=== PATIENT | female | born 1975 | race American Indian/Alaskan Native ===

== ENCOUNTER 2017-02-02 09:19 | Inpatient (IN) | payer OTHER ==
[2017-02-02 10:40] LABS: Basophils % (Auto) 0.3 % (0.0-1.8); Eosinophils % (Auto) 0.4 % (0.0-4.3); Mean Corpuscular HGB Conc 28 % (30-34); Platelet Count 113 K/mm3 (140-440); Red Blood Count 3.93 M/mm3 (3.65-5.03); White Blood Count 11.9 K/mm3 (4.5-11.0)
[2017-02-02 10:45] LABS: Hematocrit 20.5 % (30.3-42.9); Hemoglobin 5.7 gm/dl (10.1-14.3); Mean Corpuscular Hemoglobin 15 pg (28-32); Mean Corpuscular Volume 52 fl (79-97); Red Cell Distribution Width 22.8 % (13.2-15.2)
[2017-02-02 10:47] LABS: Alanine Aminotransferase 11 units/L (7-56); Albumin 3.9 g/dL (3.9-5); Albumin/Globulin Ratio 0.9 %; Alkaline Phosphatase 92 units/L (35-129); Anion Gap 15 mmol/L; Bilirubin,Total 0.3 mg/dL (0.1-1.2); Blood Urea Nitrogen 8 mg/dL (7-17); Calcium 9.1 mg/dL (8.4-10.2); Carbon Dioxide 25 mmol/L (22-30); Glucose 94 mg/dL (65-100); Lipase 13 units/L (13-60); Sodium 137 mmol/L (137-145); Total Protein 8.3 g/dL (6.3-8.2)
--- NOTE | 2017-02-02 10:52 | Emergency Department Report ---
ED General Adult HPI - General Chief complaint: Abdominal Pain Stated complaint: SIDE/BACK PAIN Time Seen by Provider: 02/02/17 10:50 Source: patient Mode of arrival: Ambulatory Limitations: No Limitations - History of Present Illness Initial comments: The patient complains of right flank pain that somewhat radiates anteriorly. She has had some difficulty in urinating but no bell burning or pain. She does not complain of nausea or vomiting. She states that she has had chronically heavy periods and they have continued to be so. She has not been seen by a brand development manager in quite some time. She does report dyspnea on exertion and generalized weakness. She's had no recent fever or chills. -: Gradual, days(s) Location: right (flank) Radiation: other (slightly anterior) Quality: aching Consistency: intermittent Improves with: none Worsens with: none Associated Symptoms: shortness of breath, weakness - Related Data Home Medications Medication Instructions Recorded Confirmed Last Taken No Known Home Medications [No 02/02/17 02/02/17 Unknown Reported Home Medications] Allergies Allergy/AdvReac Type Severity Reaction Status Date / Time No Known Allergies Allergy Unverified 04/07/15 17:54 ED Review of Systems ROS: Stated complaint: SIDE/BACK PAIN Other details as noted in HPI Constitutional: denies: chills, fever Eyes: denies: eye pain, eye discharge, vision change ENT: denies: ear pain, throat pain Respiratory: denies: cough, shortness of breath, wheezing Cardiovascular: denies: chest pain, palpitations Endocrine: no symptoms reported Gastrointestinal: denies: abdominal pain, nausea, diarrhea Genitourinary: as per HPI. denies: urgency, discharge Musculoskeletal: back pain. denies: joint swelling, arthralgia Skin: denies: rash, lesions Neurological: denies: headache, weakness, paresthesias Psychiatric: denies: anxiety, depression Hematological/Lymphatic: denies: easy bleeding, easy bruising ED Past Medical Hx - Past Medical History Previous Medical History?: No - Surgical History Past Surgical History?: No - Social History Smoking Status: Never Smoker Substance Use Type: Alcohol - Medications Home Medications: Home Medications Medication Instructions Recorded Confirmed Last Taken Type No Known Home Medications [No 02/02/17 02/02/17 Unknown History Reported Home Medications] ED Physical Exam - General Limitations: No Limitations General appearance: alert, in no apparent distress - Head Head exam: Present: atraumatic, normocephalic - Eye Eye exam: Present: normal appearance, other (conjunctival pallor) - ENT ENT exam: Present: mucous membranes moist - Neck Neck exam: Present: normal inspection. Absent: tenderness, meningismus - Respiratory Respiratory exam: Present: normal lung sounds bilaterally. Absent: respiratory distress - Cardiovascular Cardiovascular Exam: Present: regular rate, normal rhythm. Absent: systolic murmur, diastolic murmur, rubs, gallop - GI/Abdominal GI/Abdominal exam: Present: soft, normal bowel sounds. Absent: distended, tenderness, guarding, rebound, rigid - Extremities Exam Extremities exam: Present: normal inspection - Back Exam Back exam: Present: normal inspection. Absent: tenderness, CVA tenderness (R), CVA tenderness (L), muscle spasm, paraspinal tenderness, vertebral tenderness - Neurological Exam Neurological exam: Present: alert, oriented X3, CN II-XII intact. Absent: motor sensory deficit - Psychiatric Psychiatric exam: Present: normal affect, normal mood - Skin Skin exam: Present: warm, dry, intact, normal color. Absent: rash ED Course Vital Signs 02/02/17 02/02/17 02/02/17 09:54 12:29 12:44 Temperature 99.9 F H 98.4 F 98.4 F Pulse Rate 100 H 85 83 Respiratory 20 17 15 Rate Blood Pressure 131/81 145/87 126/84 O2 Sat by Pulse 100 100 100 Oximetry - Reevaluation(s) Reevaluation #1: Transfusion has been ordered. I will order ultrasound studies of the patient's abdomen and pelvis. Her urine is benign. She will be admitted to the hospital service further care and evaluation. 02/02/17 13:24 ED Medical Decision Making - Lab Data Result diagrams: 02/02/17 10:17 02/02/17 10:17 Laboratory Results - last 24 hr 02/02/17 02/02/17 10:17 10:17 WBC 11.9 H RBC 3.93 Hgb 5.7 L* Hct 20.5 L MCV 52 L MCH 15 L MCHC 28 L RDW 22.8 H Plt Count 113 L Lymph % (Auto) 17.1 Person % (Auto) 12.7 H Eos % (Auto) 0.4 Baso % (Auto) 0.3 Lymph # 2.0 Person # 1.5 H Eos # 0.1 Baso # 0.0 Seg Neutrophils % 69.5 Seg Neutrophils # 8.3 H Sodium 137 Potassium 4.0 Chloride 101.0 Carbon Dioxide 25 Anion Gap 15 BUN 8 Creatinine 0.4 L Estimated GFR > 60 BUN/Creatinine Ratio 20.00 Glucose 94 Calcium 9.1 Total Bilirubin 0.3 AST 17 ALT 11 Alkaline Phosphatase 92 Total Protein 8.3 H Albumin 3.9 Albumin/Globulin Ratio 0.9 Lipase 13 Laboratory Results - last 24 hr 02/02/17 02/02/17 02/02/17 10:17 10:17 10:43 WBC 11.9 H RBC 3.93 Hgb 5.7 L* Hct 20.5 L MCV 52 L MCH 15 L MCHC 28 L RDW 22.8 H Plt Count 113 L Lymph % (Auto) 17.1 Person % (Auto) 12.7 H Eos % (Auto) 0.4 Baso % (Auto) 0.3 Lymph # 2.0 Person # 1.5 H Eos # 0.1 Baso # 0.0 Seg Neutrophils % 69.5 Seg Neutrophils # 8.3 H PT INR APTT Sodium 137 Potassium 4.0 Chloride 101.0 Carbon Dioxide 25 Anion Gap 15 BUN 8 Creatinine 0.4 L Estimated GFR > 60 BUN/Creatinine Ratio 20.00 Glucose 94 Calcium 9.1 Magnesium Total Bilirubin 0.3 AST 17 ALT 11 Alkaline Phosphatase 92 Ammonia Total Creatine Kinase CK-MB (CK-2) CK-MB (CK-2) Rel Index Troponin T NT-Pro-B Natriuret Pep Total Protein 8.3 H Albumin 3.9 Albumin/Globulin Ratio 0.9 Lipase 13 Urine Color Yellow Urine Turbidity Clear Urine pH 8.0 H Ur Specific [place] 1.012 Urine Protein <15 mg/dl Urine Glucose (UA) Neg Urine Ketones Neg Urine Blood Neg Urine Nitrite Neg Urine Bilirubin Neg Urine Urobilinogen 4.0 Ur Leukocyte Esterase Neg Urine WBC (Auto) < 1.0 Urine RBC (Auto) 1.0 U Epithel Cells (Auto) 3.0 Urine Mucus Few Urine HCG, Qual Urine Opiates Screen Urine Methadone Screen Ur Barbiturates Screen Ur Phencyclidine Scrn Ur Amphetamines Screen U Benzodiazepines Scrn Urine Cocaine Screen U Marijuana (THC) Screen Drugs of Abuse Note Blood Type Antibody Screen Crossmatch 02/02/17 02/02/17 02/02/17 11:10 11:10 11:10 WBC RBC Hgb Hct MCV MCH MCHC RDW Plt Count Lymph % (Auto) Person % (Auto) Eos % (Auto) Baso % (Auto) Lymph # Person # Eos # Baso # Seg Neutrophils % Seg Neutrophils # PT 15.4 H INR 1.23 H APTT 31.2 Sodium Potassium Chloride Carbon Dioxide Anion Gap BUN Creatinine Estimated GFR BUN/Creatinine Ratio Glucose Calcium Magnesium 2.0 Total Bilirubin AST ALT Alkaline Phosphatase Ammonia 26.0 Total Creatine Kinase CK-MB (CK-2) CK-MB (CK-2) Rel Index Troponin T NT-Pro-B Natriuret Pep 104.3 Total Protein Albumin Albumin/Globulin Ratio Lipase Urine Color Urine Turbidity Urine pH Ur Specific [place] Urine Protein Urine Glucose (UA) Urine Ketones Urine Blood Urine Nitrite Urine Bilirubin Urine Urobilinogen Ur Leukocyte Esterase Urine WBC (Auto) Urine RBC (Auto) U Epithel Cells (Auto) Urine Mucus Urine HCG, Qual Urine Opiates Screen Urine Methadone Screen Ur Barbiturates Screen Ur Phencyclidine Scrn Ur Amphetamines Screen U Benzodiazepines Scrn Urine Cocaine Screen U Marijuana (THC) Screen Drugs of Abuse Note Blood Type Antibody Screen Crossmatch 02/02/17 02/02/17 02/02/17 11:10 11:10 Unknown WBC RBC Hgb Hct MCV MCH MCHC RDW Plt Count Lymph % (Auto) Person % (Auto) Eos % (Auto) Baso % (Auto) Lymph # Person # Eos # Baso # Seg Neutrophils % Seg Neutrophils # PT INR APTT Sodium Potassium Chloride Carbon Dioxide Anion Gap BUN Creatinine Estimated GFR BUN/Creatinine Ratio Glucose Calcium Magnesium Total Bilirubin AST ALT Alkaline Phosphatase Ammonia Total Creatine Kinase 76 CK-MB (CK-2) < 1.0 CK-MB (CK-2) Rel Index 1.3 Troponin T < 0.010 NT-Pro-B Natriuret Pep Total Protein Albumin Albumin/Globulin Ratio Lipase Urine Color Urine Turbidity Urine pH Ur Specific [place] Urine Protein Urine Glucose (UA) Urine Ketones Urine Blood Urine Nitrite Urine Bilirubin Urine Urobilinogen Ur Leukocyte Esterase Urine WBC (Auto) Urine RBC (Auto) U Epithel Cells (Auto) Urine Mucus Urine HCG, Qual Negative Urine Opiates Screen Urine Methadone Screen Ur Barbiturates Screen Ur Phencyclidine Scrn Ur Amphetamines Screen U Benzodiazepines Scrn Urine Cocaine Screen U Marijuana (THC) Screen Drugs of Abuse Note Blood Type O POSITIVE Antibody Screen Negative Crossmatch See Detail 02/02/17 Unknown WBC RBC Hgb Hct MCV MCH MCHC RDW Plt Count Lymph % (Auto) Person % (Auto) Eos % (Auto) Baso % (Auto) Lymph # Person # Eos # Baso # Seg Neutrophils % Seg Neutrophils # PT INR APTT Sodium Potassium Chloride Carbon Dioxide Anion Gap BUN Creatinine Estimated GFR BUN/Creatinine Ratio Glucose Calcium Magnesium Total Bilirubin AST ALT Alkaline Phosphatase Ammonia Total Creatine Kinase CK-MB (CK-2) CK-MB (CK-2) Rel Index Troponin T NT-Pro-B Natriuret Pep Total Protein Albumin Albumin/Globulin Ratio Lipase Urine Color Urine Turbidity Urine pH Ur Specific [place] Urine Protein Urine Glucose (UA) Urine Ketones Urine Blood Urine Nitrite Urine Bilirubin Urine Urobilinogen Ur Leukocyte Esterase Urine WBC (Auto) Urine RBC (Auto) U Epithel Cells (Auto) Urine Mucus Urine HCG, Qual Urine Opiates Screen Presumptive negative Urine Methadone Screen Presumptive negative Ur Barbiturates Screen Presumptive negative Ur Phencyclidine Scrn Presumptive negative Ur Amphetamines Screen Presumptive negative U Benzodiazepines Scrn Presumptive negative Urine Cocaine Screen Presumptive negative U Marijuana (THC) Screen Presumptive negative Drugs of Abuse Note Disclamer Blood Type Antibody Screen Crossmatch Critical Care Time: Yes Critical care time in (mins) excluding proc time.: 35 Critical care attestation.: If time is entered above; I have spent that time in minutes in the direct care of this critically ill patient, excluding procedure time. ED Disposition Clinical Impression: Right flank pain, Symptomatic anemia, DUB (dysfunctional uterine bleeding) Disposition: OP ADMITTED IP TO THIS HOSP Is pt being admited?: Yes Does the pt Need Aspirin: No Condition: Stable Instructions: Abdominal Pain (ED) Time of Disposition: 13:27
[2017-02-02] MEDS ORDERED: NACL 0.9% 500 ML 500 ML IV ONE (10:54)
[2017-02-02 11:02] LABS: Urine Drugs of Abuse Note Disclamer
--- NOTE | 2017-02-02 11:16 | XRay Report ---
AP CHEST: HISTORY: Hypertension AP view of the chest demonstrates a normal mediastinal and cardiac contour with clear lungs and normal bony and soft tissue structures. IMPRESSION: Unremarkable AP chest.
[2017-02-02 11:18] LABS: Bilirubin,Urine NEG (Negative); Blood,Urine NEG (Negative); Ketones,Urine NEG (Negative); Leukocyte Esterase,Urine NEG (Negative); Mucus,Urine FEW /HPF; Nitrite,Urine NEG (Negative); Protein,Urine <15 mg/dL mg/dL (Negative); WBC,Urine < 1.0 /HPF (0.0-6.0)
[2017-02-02 11:45] LABS: INR 1.23 (0.87-1.13)
[2017-02-02 11:46] LABS: Partial Thromboplastin Time 31.2 Sec. (24.2-36.6)
[2017-02-02 11:54] LABS: Creatine Kinase 76 units/L (30-135)
[2017-02-02 11:56] LABS: Creatine Kinase MB < 1.0 ng/mL (0.0-4.0)
--- NOTE | 2017-02-02 13:32 | Admit Criteria Form ---
Admission Criteria Documentation: OBSTETRIC AND GYNECOLOGIC DISEASE GRG Clinical Indications for Admission to Inpatient Care (Place 'X' for any and all applicable criteria): Hospital admission is needed for appropriate care of the patient because of ANY ONE of the following (1)(2)(3): [ ]I. Hemodynamic instability, as indicated by ALL of the following (1)(2)(3)( 4)(5): [ ]a) Vital signs or other findings not as expected for chronic patient condition or baseline [ ]b) Instability indicated by ANY ONE of the following: [ ]i) Hypotension [ ]ii) Symptomatic tachycardia unresponsive to treatment (eg, analgesia, fluids, sedation as indicated) [ ]iii) Inadequate perfusion indicated by ANY ONE of the following: [ ]A. Lactic acidosis (greater than 2 mmol/ L) [ ]B. New abnormal capillary refill ( greater than 3 seconds) [ ]C. Reduced urine output [ ]D. New altered mental status [ ]iv) Orthostatic vital sign changes unresponsive to treatment (eg, fluids) [ ]v) Multiple IV fluid boluses required to maintain adequate blood pressure or perfusion [ ]vi) IV inotropic or vasopressor medication required to maintain adequate blood pressure or perfusion [ ]II. Obstetric infection requiring hospitalization indicated by ANY ONE of the following(13)(14): [ ]a) Chorioamnionitis [ ]b) Endometritis (except mild endometritis) [ ]c) Pelvic abscess [ ]d) Peritonitis [ ]e) Septic pelvic thrombophlebitis [ ]III. Amniotic fluid or pulmonary embolism(4)(5)(6) [ ]IV. Suspected peritonitis or ectopic requiring monitoring beyond scope of 24 hours or observation care(7)(8) [ ]V. compromise requiring hospitalization indicated by ALL of the following(9)(10): [ ]a) compromise indicated by ANY ONE of the following(11): [ ]i) Abnormal heart rate monitoring [ ]ii) Abnormal contraction stress test [ ]iii) Abnormal biophysical profile [ ]iv) Abnormal Doppler flow in vessels (ie, Doppler velocimetry) (12) [ ]b) Persistence of compromise indicators during evaluation and observation monitoring [ ]. Ovarian hyperstimulation syndrome requiring hospitalization[A] indicated by ALL of the following(15): [ ]a) Recent ovarian stimulation with gonadotropins, or evidence on ultrasound of spontaneous emergence of large number of ovarian follicles [ ]b) Evidence of severe ovarian hyperstimulation syndrome indicated by ANY ONE of the following: [ ]i) Abdominal pain unresponsive to oral therapy [ ]ii) Acute respiratory distress syndrome [ ]iii) Electrolyte imbalance ( eg, hyponatremia, hyperkalemia) [ ]iv) Elevated liver enzymes [ ]v) Evidence of thromboembolism [ ]vi) Hemoconcentration (hematocrit greater than 45 % (0.45)) [ ]vii) Inability to maintain oral intake adequate to prevent hemoconcentration [ ]viii) Marked hypotension from baseline (eg, SBP 20 mmHg below patients usual pressure) [ ]ix) Oliguria or anuria [ ]x) Ovarian torsion [ ]xi) Pleural or pericardial effusion on x-ray or echocardiogram [ ]xii) Rapid increase in serum creatinine to greater than 1.2 mg/dL (106 micromoles/L) or creatinine clearance less than 50 mL/min/1.73m2 (0.84 mL/ sec/1.73m2) [ ]xiii) Ruptured ovarian cyst with hemorrhage [ ]xiv) Severe abdominal pain or peritoneal signs [ ]xv) Tense ascites that cannot be managed with paracentesis in outpatient setting [ ]VII.Pelvic infection requiring hospitalization indicated by ANY ONE of the following (16): [ ]a) Outpatient treatment has failed or is not appropriate (eg, inpatient monitoring required) [ ]b) Pelvic abscess [ ]c) Surgical emergency cannot be excluded (eg, rigid abdomen) [ ]d) Vomiting precluding outpatient and observation care management VIII. loss complications requiring inpatient medical treatment indicated by ANY ONE of the following (4)(7)(9): [ ]a) Fever [ ]b) Peritonitis [ ]c) Sepsis [ ]d) Severe abdominal pain [ ]IX. or patient requiring monitoring for severe heart failure, pulmonary disease, or other comorbid condition (eg, peripartum cardiomyopathy) (4)(17) [ ]X. patient with rupture of membranes requiring hospitalization indicated by ANY ONE of the following: [ ]a) Chorioamnionitis, cloudy amniotic fluid, or other evidence of infection [ ]b) compromise or other need for monitoring (11) [ ]c) Gestation longer than 23 weeks and ANY ONE of the following: [ ]i) Abnormal (noncephalic) presentation [ ]ii) Inadequate home environment (eg, home too far from hospital, unable to rapidly return to hospital) [ ]d) Temperature greater than 100.4 degrees F (38 degrees C)( oral) [ ]e) Threatened labor requiring monitoring beyond scope (eg, over 24 hours) of observation Care [ ] XI. complications, including severe lacerations, infections, or retained placenta (19) [ X] XII.Uterine bleeding with high-risk features indicated by ANY ONE of the following (4): [ ]a) Active major hemorrhage (eg, hemorrhage) [ ]b) Coagulopathy with active bleeding [ ]c) Gestational trophoblastic disease (eg, molar ) (20 ) [ ]d) (longer than 23 weeks) and ANY ONE of the following: [ ]i) Pain [ ]ii) Placental abruption, known or suspected [ ]iii) Placenta accrete, known or suspected(21) [ ]iv) Placenta previa, known or suspected [ ]v) Vasa previa [X ]e) Severe anemia [ ]XIII. Obstetric or Gynecologic Disease, condition or symptom for which ANY ONE of the following: [ ]a) Emergency and observation care have failed or are not considered appropriate ( Also use General Criteria: Observation Care Criteria as appropriate) [ ]b) Presence of a General Admission Criteria or Pediatric General Admission Criteria The original [facility] [employer] content created by [facility] has been revised. The portions of the content which have been revised are identified through the use of italic text or in bold, and [facility] has neither reviewed nor approved the modified material.All other unmodified content is copyright [facility]. Please see references footnoted in the original [facility] edition 2016 Admission Criteria Met: Yes
--- NOTE | 2017-02-02 13:47 | History and Physical Report ---
History of Present Illness Chief complaint: I just feel weak and tired History of present illness: 41 YO Female with PMH presents to ED for evaluation. Pt states that she has been feeling weak and tired for the past several weeks. Pt states that symptoms have gotten worse over the past 3 days. The patient complains of right flank pain that somewhat radiates anteriorly as well as difficulty with urinating. Pt denies bell burning or pain, NVD. She states that she has had chronically heavy periods and they have continued to be so. She has not been seen by a wild life manager. Past History Past Medical History: No medical history, other (reviewed) Past Surgical History: No surgical history, Other (reviewed) Social history: single. denies: smoking, alcohol abuse, prescription drug abuse Family history: hypertension Medications and Allergies Allergies Allergy/AdvReac Type Severity Reaction Status Date / Time No Known Allergies Allergy Unverified 04/07/15 17:54 Home Medications Medication Instructions Recorded Confirmed Last Taken Type No Known Home Medications [No 02/02/17 02/02/17 Unknown History Reported Home Medications] Review of Systems All systems: negative Constitutional: other (heavy menstural periods) Exam - Constitutional Vitals: Temp Pulse Resp BP Pulse Ox 98.2 F 89 18 140/93 100 02/02/17 13:26 02/02/17 13:26 02/02/17 13:26 02/02/17 13:26 02/02/17 13:26 General appearance: Present: no acute distress, well-nourished - EENT Eyes: Present: PERRL ENT: hearing intact, clear oral mucosa - Neck Neck: Present: supple, normal ROM - Respiratory Respiratory effort: normal Respiratory: bilateral: CTA - Cardiovascular Heart Sounds: Present: S1 & S2. Absent: rub, click - Extremities Extremities: pulses symmetrical, No edema Peripheral Pulses: within normal limits - Abdominal General gastrointestinal: Present: soft, non-tender, non-distended, normal bowel sounds Female genitourinary: Present: normal - Integumentary Integumentary: Present: clear, warm, dry - Musculoskeletal Musculoskeletal: gait normal, strength equal bilaterally - Psychiatric Psychiatric: appropriate mood/affect, intact judgment & insight - Neurologic Neurologic: CNII-XII intact, moves all extremities Results - Labs CBC & Chem 7: 02/02/17 10:17 03/30/17 10:17 Labs: Abnormal lab results 03/30/17 03/30/17 03/30/17 Range/Units 10:17 10:17 10:43 WBC 11.9 H (4.5-11.0) K/mm3 Hgb 5.7 L* (10.1-14.3) gm/dl Hct 20.5 L (30.3-42.9) % MCV 52 L (79-97) fl MCH 15 L (28-32) pg MCHC 28 L (30-34) % RDW 22.8 H (13.2-15.2) % Plt Count 113 L (140-440) K/mm3 [place] % (Auto) 12.7 H (0.0-7.3) % [place] # 1.5 H (0.0-0.8) K/mm3 Seg Neutrophils # 8.3 H (1.8-7.7) K/mm3 PT (12.2-14.9) Sec. INR (0.87-1.13) Creatinine 0.4 L (0.7-1.2) mg/dL Total Protein 8.3 H (6.3-8.2) g/dL Urine pH 8.0 H (5.0-7.0) Crossmatch 02/02/17 02/02/17 Range/Units 11:10 11:10 WBC (4.5-11.0) K/mm3 Hgb (10.1-14.3) gm/dl Hct (30.3-42.9) % MCV (79-97) fl MCH (28-32) pg MCHC (30-34) % RDW (13.2-15.2) % Plt Count (140-440) K/mm3 [place] % (Auto) (0.0-7.3) % [place] # (0.0-0.8) K/mm3 Seg Neutrophils # (1.8-7.7) K/mm3 PT 15.4 H (12.2-14.9) Sec. INR 1.23 H (0.87-1.13) Creatinine (0.7-1.2) mg/dL Total Protein (6.3-8.2) g/dL Urine pH (5.0-7.0) Crossmatch See Detail Assessment and Plan - Patient Problems (1) Blood loss anemia Current Visit: Yes Status: Acute Plan to address problem: Transfuse PRBC, supportive care, monitor serial hgb (2) Iron deficiency Current Visit: Yes Status: Acute Plan to address problem: Iron replacement therapy, supportive care, Pt counseled regarding compliance. (3) Symptomatic anemia Current Visit: Yes Status: Acute Plan to address problem: PRBC transfusion, serial hgb, repeat physical exam (4) DUB (dysfunctional uterine bleeding) Current Visit: Yes Status: Acute Plan to address problem: PROTOZOOLOGIST f/u as outpatient, pt counseled regarding compliance (5) DVT prophylaxis Current Visit: Yes Status: Acute
[2017-02-02] MEDS ORDERED: TYLENOL PO PRN (13:48)
[2017-02-02] MEDS ORDERED: DUONEB 0.5 MG-3 MG/3 ML SOLN IH PRN (13:48)
[2017-02-02] MEDS ORDERED: PROVENTIL IH PRN (13:54)
--- NOTE | 2017-02-02 15:29 | Ultrasound Report ---
ULTRASOUND ABDOMEN INDICATION: Abdominal and right flank pain. COMPARISON: None similar. FINDINGS: Abdominal sonography demonstrates normal hepatic contour without focal suspicious lesions or biliary dilatation. No gallstones or pericholecystic fluid. Gallbladder wall thickness is 1.6 mm. Common bile duct is 2.6 mm. Homogenous spleen estimated at 8.1 cm in length. No ascites. Visualized pancreas, nonaneurysmal abdominal aorta and IVC appear within normal limits. Nonhydronephrotic bilateral kidneys with estimated lengths of 11.8 cm on the right and 12.9 cm on the left. CONCLUSION: Normal abdominal sonogram, as described. Thank you for the opportunity to participate in this patient's care.
--- NOTE | 2017-02-02 15:37 | Ultrasound Report ---
ULTRASOUND PELVIS COMPLETE - TRANSABDOMINAL AND TRANSVAGINAL: INDICATION: Right flank and pelvic pain. COMPARISON: None similar. FINDINGS: Transabdominal and transvaginal pelvic sonography performed in this patient with LMP of 01/16/2017 demonstrates an anteverted, approximately 8.5 x 5.6 x 6 cm uterus with a 6.1 x 4.4 x 5.5 cm fibroid towards the left. Small nabothian cysts. Endometrial thickness estimated at 1 cm. No significant free fluid. Right ovary is 4.6 x 2.6 x 4.3 cm and demonstrates a 4.3 cm hypoechoic cyst with diffuse low level echoes, possibly hemorrhagic. Left ovary is 4.3 x 2.2 x 2.1 cm. CONCLUSION: No acute pelvic sonographic abnormality with an approximately 6 cm fibroid and other findings, as above. Thank you for the opportunity to participate in this patient's care.
[2017-02-02] MEDS ORDERED: TYLENOL ONE (16:09)
[2017-02-02] MEDS: FEOSOL PO SCH (21:18)
[2017-02-03 09:08] LABS: Hemoglobin 8.2 gm/dl (10.1-14.3); Red Blood Count 4.39 M/mm3 (3.65-5.03); White Blood Count 10.1 K/mm3 (4.5-11.0)
[2017-02-03 09:09] LABS: Hematocrit 26.8 % (30.3-42.9)
[2017-02-03 09:10] LABS: Mean Corpuscular HGB Conc 31 % (30-34); Mean Corpuscular Hemoglobin 19 pg (28-32); Mean Corpuscular Volume 61 fl (79-97); Platelet Count 104 K/mm3 (140-440); Red Cell Distribution Width 33.9 % (13.2-15.2)
[2017-02-03 09:11] LABS: Basophils % (Auto) 0.9 % (0.0-1.8); Eosinophils % (Auto) 0.8 % (0.0-4.3)
[2017-02-03] MEDS: FEOSOL PO SCH (10:17)
--- NOTE | 2017-02-03 10:17 | Discharge Summary ---
<JUAN GODINEZ D - Last Filed: 02/03/17 13:14> Providers - Providers Date of Admission: 02/02/17 12:48 Attending physician: MARIS TROTTER 02/03/17 07:55 Consult to Physician [CONS] Routine Consulting Provider: LOLITA JACQUES Reason For Exam: 1.Ovarian cyst, hemorrhagic 2. fibroid Place consult to:: Dr. Jacques/ [facility] Notified:: office Phone number called:: Was contact made?: Yes If yes, spoke with:: jose c Fraser called:: 09:06 Primary care physician: [employer] Hospitalization Condition: Good Disposition: DISCHARGED TO HOME OR SELFCARE Exam - Constitutional Vitals: Temp Pulse Resp BP Pulse Ox 98.3 F 73 18 117/71 96 02/03/17 07:20 02/03/17 07:20 02/03/17 07:20 02/03/17 07:20 02/03/17 07:59 Plan Follow up with: DONG HANSON MD [Primary Care Provider] - 7 Days BRETT SPENCER MD [Staff Physician] - 02/13/17 11:00 am ([place]) Prescriptions: Docusate Sodium [Colace] 100 mg PO BID #60 capsule Ferrous Sulfate [Feosol 325 MG tab] 325 mg PO BID #60 tablet <MARIS TROTTER - Last Filed: 02/03/17 14:05> Providers - Providers Date of Admission: 02/02/17 12:48 Date of discharge: 02/03/17 Attending physician: MARIS TROTTER 02/03/17 07:55 Consult to Physician [CONS] Routine Consulting Provider: LOLITA JACQUES Reason For Exam: 1.Ovarian cyst, hemorrhagic 2. fibroid Place consult to:: Dr. Carmela garner Notified:: office Phone number called:: Was contact made?: Yes If yes, spoke with:: jose c Fraser called:: 09:06 Primary care physician: [employer] Hospitalization - Discharge Diagnoses (1) Anemia due to chronic blood loss Status: Acute (2) Fibroid, uterine Status: Acute Qualifiers: Uterine leiomyoma location: U (3) Right ovarian cyst Status: Acute Exam - Constitutional Vitals: Temp Pulse Resp BP Pulse Ox 98.3 F 73 18 117/71 96 02/03/17 07:20 02/03/17 07:20 02/03/17 07:20 02/03/17 07:20 02/03/17 07:59 Plan Activity: no restrictions Diet: low fat Additional Instructions: 1.Follow up with PCP or [facility] in 1 week. 2.Follow up with Dr. Godinez, Gynecology in 1 week
[2017-02-03] MEDS ORDERED: FLUARIX QUAD 2016-2017(36 MOS+) IM ONE (12:00)
--- NOTE | 2017-02-03 13:20 | Consultation ---
History of Present Illness Consult date: 02/03/17 Reason for consult: menorrhagia History of present illness: She was admitted for (R) flank an dback pain. She was noted to have a hgb of 5. She admits to a long history of menorrhagia but has not had an evaluation. She usually bleeds heavy for 3/3days every month. Past History Past Medical History: no pertinent history Past Surgical History: other (BTL) [employer] History: denies: abnormal PAP smear, chlamydia, gonorrhea, hepatitis B, hepatitis C, herpes - Obstetrical History : 5 Para: 5 Number of Living Children: 5 (svdx5) Medications and Allergies Allergies Allergy/AdvReac Type Severity Reaction Status Date / Time No Known Allergies Allergy Unverified 04/07/15 17:54 Home Medications Medication Instructions Recorded Confirmed Last Taken Type Docusate Sodium [Colace] 100 mg PO BID #60 capsule 02/03/17 Unknown Rx Ferrous Sulfate [Feosol 325 MG tab] 325 mg PO BID #60 tablet 02/03/17 Unknown Rx Active Meds: Active Medications Acetaminophen (Tylenol) 650 mg PO Q4H PRN PRN Reason: Pain MILD(1-3)/Fever >100.5/KHAN Last Admin: 02/02/17 16:16 Dose: 650 mg Albuterol (Proventil) 2.5 mg IH Q6HRT PRN PRN Reason: Wheezing Ferrous Sulfate (Feosol) 325 mg PO BID ODIN Last Admin: 02/03/17 10:17 Dose: 325 mg - Vital Signs Vital signs: Vital Signs Temp Pulse Resp BP Pulse Ox 99.9 F H 100 H 20 131/81 100 02/02/17 09:54 02/02/17 09:54 02/02/17 09:54 02/02/17 09:54 02/02/17 09:54 Temp Pulse Resp BP Pulse Ox 98.3 F 73 18 117/71 96 02/03/17 07:20 02/03/17 07:20 02/03/17 07:20 02/03/17 07:20 02/03/17 07:59 Results Result Diagrams: 02/03/17 07:53 02/02/17 10:17 Abnormal lab results 02/03/17 Range/Units 07:53 Hgb 8.2 L (10.1-14.3) gm/dl Hct 26.8 L D (30.3-42.9) % MCV 61 L D (79-97) fl MCH 19 L (28-32) pg RDW 33.9 H (13.2-15.2) % Plt Count 104 L (140-440) K/mm3 [place] % (Auto) 13.6 H (0.0-7.3) % [place] # 1.4 H (0.0-0.8) K/mm3 All other labs normal. Assessment and Plan Agree with discharge home Diagnosis explained to patient . Questions answered. Discussed with patient various medical, surgical and radioloigal therapies common for treatment She will follow up in our office for evaluation and management - Patient Problems (1) Anemia due to chronic blood loss Current Visit: Yes Status: Acute (2) DUB (dysfunctional uterine bleeding) Current Visit: Yes Status: Acute (3) Fibroid, uterine Current Visit: Yes Status: Acute Qualifiers: Uterine leiomyoma location: U (4) Right ovarian cyst Current Visit: Yes Status: Acute
[2017-02-03 15:27] VITALS: BP 132/85
== END 2017-02-03 18:00 | disposition home or self-care (01) | DRG 812 ==
LOC: ED 09:19 → 3A 12:48
PROVIDERS: ADMIT Internal Medicine; ATTEND Internal Medicine
PROC: 30233N1 Transfusion of Nonautologous Red Blood Cells into Peripheral Vein, Percutaneous Approach (ICD-10-PCS; principal; 2017-02-02)
DX: D62 Acute posthemorrhagic anemia (principal); N93.8 Other specified abnormal uterine and vaginal bleeding; D25.9 Leiomyoma of uterus, unspecified; N83.201 Unspecified ovarian cyst, right side; R10.9 Unspecified abdominal pain; Z91.19 Patient's noncompliance with other medical treatment and regimen; Z82.49 Family history of ischemic heart disease and other diseases of the circulatory system; N92.0 Excessive and frequent menstruation with regular cycle; D50.9 Iron deficiency anemia, unspecified
CPT/HCPCS: 36415; 71010; 76700; 76830; 76856; 80053; 80307; 81001; 81025; 82140; 82550; 82553; 83690; 83735; 83880; 84484; 85025; 85610; 85730; 86850; 86900; 86901; 86920; 90686; 93005; 93010; 96360; 96361; 99291; J7040; P9016

== ENCOUNTER 2017-12-25 20:49 | Emergency (ER) | payer SELFPAY ==
[2017-12-25 22:08] VITALS: BP 134/94
[2017-12-25 22:58] LABS: Basophils % (Auto) 0.4 % (0.0-1.8); Eosinophils # (Auto) 0.1 K/mm3 (0.0-0.4); Eosinophils % (Auto) 0.8 % (0.0-4.3); Hematocrit 25.4 % (30.3-42.9); Hemoglobin 7.6 gm/dl (10.1-14.3); Lymphocytes % (Auto) 34.9 % (13.4-35.0); Mean Corpuscular HGB Conc 30 % (30-34); Mean Corpuscular Hemoglobin 17 pg (28-32); Mean Corpuscular Volume 57 fl (79-97); Monocytes # (Auto) 1.1 K/mm3 (0.0-0.8); Monocytes % (Auto) 12.3 % (0.0-7.3); Platelet Count 269 K/mm3 (140-440); Red Blood Count 4.46 M/mm3 (3.65-5.03); Red Cell Distribution Width 22.7 % (13.2-15.2)
[2017-12-25 23:07] LABS: HCG Qualitative,Urine Negative (Negative)
[2017-12-25 23:09] LABS: Bilirubin,Urine NEG (Negative); Blood,Urine LG (Negative); Color,Urine Yellow (Yellow); Mucus,Urine FEW /HPF; Nitrite,Urine NEG (Negative); Protein,Urine <15 mg/dL mg/dL (Negative)
[2017-12-26 00:34] LABS: BUN/Creatinine Ratio 22; Blood Urea Nitrogen 11 mg/dL (7-17); Calcium 8.5 mg/dL (8.4-10.2); Hemolysis Index 0
== END 2017-12-26 04:05 | disposition left against medical advice (07) ==
LOC: ED 20:49
DX: R53.1 Weakness (principal); R42 Dizziness and giddiness; Z53.21 Procedure and treatment not carried out due to patient leaving prior to being seen by health care provider
CPT/HCPCS: 36415; 80048; 81001; 81025; 82550; 84443; 84484; 85025; 85379; 93005; 93010